=== PATIENT | male | born 1940 | race Caucasian/White ===

== ENCOUNTER → 2019-03-14 | Day surgery (SDC) | payer MEDICARE ==
[2019-03-12 14:20] LABS: BASOPHILS # (AUTO) 0.1 (0.0-0.1); EOSINOPHILS # (AUTO) 0.4 (0.0-0.4); EOSINOPHILS % 5.8 % (0.0-6.0); HEMATOCRIT 39.7 % (38.2-49.6); HEMOGLOBIN 13.6 g/dL (14.0-18.0); LYMPHOCYTES # (AUTO) 3.4 (1.0-3.2); LYMPHOCYTES % 44.4 % (18.0-39.1); MEAN CORPUSCULAR HEMOGLOBIN 33.8 pg (28-32); MEAN CORPUSCULAR HGB CONC 34.3 g/dL (31-35); MEAN CORPUSCULAR VOLUME 98.8 fL (81-99); MONOCYTES # (AUTO) 0.7 (0.2-0.8); MONOCYTES % 8.9 % (4.4-11.3); NEUTROPHILS % 39.1 % (38.7-80.0); PLATELET COUNT 189 x10e3/uL (140-360); RED BLOOD COUNT 4.02 x10e6/uL (4.3-5.7); RED CELL DISTRIBUTION WIDTH 13.4 % (11.7-14.4)
--- NOTE | 2019-03-12 14:50 | Diagnostic Imaging Report ---
EXAM: CHEST 2 VIEWS DATE: 03/12/2019 1:57 PM INDICATION: Right carpal tunnel/hand pain, preoperative evaluation COMPARISON: None FINDINGS: The trachea is midline. The lungs are symmetrically expanded without evidence for focal consolidation, pneumothorax, or significant pleural effusion. The cardiomediastinal silhouette is within normal limits. Atherosclerotic calcifications are noted within the thoracic aorta. No acute osseous abnormalities identified. IMPRESSION: No acute cardiopulmonary process identified. Signed by: Dr. Julian Xie MD on 03/12/2019 2:47 PM
[2019-03-12 14:56] LABS: INR 0.98; PROTHROMBIN TIME 13.5 seconds (11.9-14.5)
[2019-03-12 14:57] LABS: PARTIAL THROMBOPLASTIN TIME 31.4 seconds (23.8-35.5)
[~2019-03-14] MED LIST: ASPIRIN81 MG; BUPIVACAINE HCL 0.5% INJ 30 ML VIAL INJ ONE; CARVEDILOL12.5 MG PO; CEFAZOLIN SOD 1 GM/NS 50ML 100 ML IV ONE; CENTRUM SILVER1 EAC3; CINNAMON500 MG; DEXAMETHASONE SOD PHOS INJ 4 MG/ML VIAL ONE; FOLIC ACID1 MG PO; GLUCOSAMINE1000 MG; KETOROLAC TROMETHAMINE 30 MG/ML VIAL ONE; LISINOPRIL10 MG PO; LOVASTATIN20 MG; MILK THISTLE175 M2; NABUMETONE500 MG; OMEPRAZOLE40 MG; ONDANSETRON HCL INJ 2MG/ML 2ML 2 MG/ML VIAL ONE; PROPOFOL IV EMULSION 10 MG/ML 20 ML VIAL ONE; REVATIO20 MG PO; ROPINIROLE HCL1 MG PO; SAW PALMETTO450 MG; SEVOFLURANE INHAL SOLN 250 ML PEN BTL ONE; VITAMIN B COMP1 EACH; VITAMIN C1000 M2; iron PO
--- OUTSIDE RECORDS SUMMARY | 2019-03-14 09:22 | XMS REPORT ---
Author Author [facility] Address Unknown Phone Unavailable Care Team Providers Care Mold Presser Name Role Phone GAYLA PARKS Unavailable Unavailable Problems This patient has no known problems. Allergies, Adverse Reactions, Alerts This patient has no known allergies or adverse reactions. Medications This patient has no known medications. Results Test Description Test Time Test Comments Text Results Atomic Results Result Comments CHEST 2 VIEWS 2019-03-12 14:46:00 [place] [id number] Patient Name: LIMA HERNANDEZ JR MR #: [id number] : 1940 Age/Sex: 78/M Req #: [id number] [facility] Hospital Physician: Ordered by: GAYLA PARKS MD Report #: [id number] Location: OR Room/Bed: Procedure: [id number] DX/CHEST 2 VIEWS Exam Date: 03/12/19 Exam Time: 1407 REPORT STATUS: Signed EXAM: CHEST 2 VIEWS DATE: 03/12/2019 1:57 PM INDICATION: Right carpal tunnel/hand pain, preoperative evaluation COMPARISON: None FINDINGS: The trachea is midline. The lungs are symmetrically expanded without evidence for focal consolidation, pneumothorax, or significant pleural effusion. The cardiomediastinal silhouette is within normal limits. Atherosclerotic calcifications are noted within the thoracic aorta. No acute osseous abnormalities identified. IMPRESSION: No acute cardiopulmonary process identified. Signed by: Dr. Julian Sandoval MD on 03/12/2019 2:47 PM Dictated By: JULIAN SANDOVAL MD [id number] Transcribed By: NEGRITA on 03/12/19 1448 COPY TO: GAYLA PARKS MD
--- OUTSIDE RECORDS SUMMARY | 2019-03-14 09:22 | XMS REPORT | Summary of Care ---
Author Author [facility] Address [address] [place] [address] Phone Unavailable Care Team Providers Care Olive Picker Name Role Phone OBDULIO DOUGHERTY N.P. Unavailable Unavailable SHAR BUSBY [place], RISSA BELTRAN Unavailable Unavailable RISSA MYLES M.D. Unavailable JACI GALE [place], OUMOU Unavailable Unavailable Jeff BUSBY, Sundeep Unavailable Unavailable Berenice BUSBY, Charlotte Unavailable Unavailable Unavailable Unavailable Functional Status Name Dates Details Functional status health issues are not documented Status: Name Dates Details Cognitive status health issues are not documented Status: Problems Name Dates Details Edema (782.3, R60.9) Status: Active Advance directive discussed with patient (V65.49, Z71.89) Status: Active Trigger finger, acquired (727.03, M65.30) Status: Active Special screening, prostate cancer (V76.44, Z12.5) Status: Active Acute URI (465.9, J06.9) Status: Active Encounter for mini-mental status examination Status: Active Chest pain (786.50, R07.9) Status: Active 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, 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: Active Need for influenza vaccination (V04.81, Z23) Status: Active Peripheral neuropathy, 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, G60.9) Status: Active Right maxillary sinusitis (473.0, J32.0) Status: Active Nasal septal deviation (470, J34.2) Status: Active Mixed hyperlipidemia (272.2, E78.2) Status: Active Abnormal liver enzymes (790.5, R74.8) Status: Active Alcoholic fatty liver (571.0, K70.0) Status: Active Anemia, unspecified type (285.9, D64.9) Status: Active 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, K22.70) Status: Active Claudication (443.9, I73.9) Status: Active Colon cancer screening (V76.51, Z12.11) Status: Active Essential (primary) hypertension (401.9, I10) Status: Active GERD without esophagitis (530.81, K21.9) Status: Active Hernia, inguinal (550.90, K40.90) Status: Active Mild aortic regurgitation (424.1, I35.1) Status: Active Restless legs syndrome (333.94, G25.81) Status: Active Constipation, unspecified constipation type (564.00, K59.00) Status: Active Flu vaccine need (V04.81, Z23) Status: Active Chronic maxillary sinusitis (473.0, J32.0) Status: Active Laceration of skin (879.8) Status: Active Medications Name Dates Details Lovastatin 20 MG Oral Tablet TAKE ONE TABLET BY MOUTH IN THE EVENING BEFORE DINNER Quantity: 90 DOUGHERTY N.P., OBDULIO * Start : 16-Apr-2013 Active Omeprazole 20 MG Oral Capsule Delayed Release TAKE ONE CAPSULE BY MOUTH ONCE DAILY * Quantity: 90 Refills: 1 DOUGHERTY N.P., OBDULIO * Start : 21-Feb-2017 Active Aspirin 81 MG TABS TAKE 1 TABLET DAILY. * Refills: 0 Active Glucosamine CAPS 2000MG DAILY * Refills: 0 Active Vitamin C CAPS * Refills: 0 Active Vitamin D 2000 UNIT Oral Tablet ONCE DAILY * Refills: 0 Active Lisinopril 40 MG Oral Tablet TAKE ONE TABLET BY MOUTH ONCE DAILY DIRECTED * Quantity: 90 Refills: 1 DOUGHERTY N.P., OBDULIO * Start : 13-May-2013 Active Milk Thistle 500 MG Oral Capsule TAKE DIRECTED. * Quantity: 30 Refills: 0 DOUGHERTY N.P., OBDULIO * Start : 27-May-2013 Active Centrum Silver TABS TAKE 1 TABLET DAILY. * Refills: 0 Active Vitamin B Complex-C Oral Capsule 1 pill twice daily * Refills: 0 DOUGHERTY N.P., OBDULIO * Start : 19-May-2014 Active Saw Crowell CAPS TAKE 2 CAPSULE DAILY * Refills: 0 Active Carvedilol 25 MG Oral Tablet TAKE 1 TABLET TWICE DAILY WITH MEALS. * Quantity: 180 Refills: 1 DOUGHERTY N.P., OBDULIO * Start : 23-Dec-2016 Active ROPINIRole HCl - 3 MG Oral Tablet TAKE 1 TABLET DAILY. * Quantity: 90 Refills: 1 DOUGHERTY N.P., OBDULIO * Start : 03-May-2017 Active MiraLax Oral Powder MIX 1 CAPFUL (17GM) IN 8 OUNCES OF WATER, JUICE, OR TEA AND DRINK DAILY. 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, K22.70) Status: Resolved History of Cellulitis and abscess of finger (681.00, L03.019) Status: Resolved History of Coronary Artery Disease (V12.59) Status: Resolved History of Diverticula of intestine (562.10, K57.30) Status: Resolved History of Ear pain, bilateral (388.70, H92.03) Status: Resolved History of edema (V13.89, Z87.898) Status: Resolved History of Encounter for mini-mental status examination Status: Resolved History of essential hypertension (V12.59, Z86.79) Status: Resolved History of ETD (eustachian tube dysfunction) (381.81, H69.80) Status: Resolved History of Fatty liver (571.8, K76.0) Status: Resolved History of fever (V13.89, Z87.898) Status: Resolved History of Flu vaccine need (V04.81, Z23) Status: Resolved History of hyperlipidemia (V12.29, Z86.39) Status: Resolved History of Impaired fasting glucose (790.21, R73.01) Status: Resolved History of Impaired fasting glucose (790.21, R73.01) Status: Resolved History of influenza (V12.09, Z87.09) Status: Resolved History of influenza (V12.09, Z87.09) Status: Resolved History of Kidney insufficiency (593.9, N28.9) Status: Resolved History of Left knee pain (719.46, M25.562) Status: Resolved History of Malaise (780.79, R53.81) Status: Resolved History of Melena (578.1, K92.1) Status: Resolved History of Need for hepatitis C screening test (V73.89, Z11.59) Status: Resolved History of Neuralgia (729.2, M79.2) Status: Resolved History of Neuralgia (729.2, M79.2) Status: Resolved History of Nonspecific findings on examination of urine (791.9, R82.90) Status: Resolved History of Pain, joint, hand, right (719.44, M25.541) Status: Resolved History of Peripheral neuropathy, 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, G60.9) Status: Resolved History of pneumococcal vaccination (V49.89, Z92.29) Status: Resolved History of renal insufficiency syndrome (V13.09, Z87.448) Status: Resolved History of shortness of breath (V13.89, Z87.898) Status: Resolved History of Trauma of ear canal, initial encounter (959.09, S09.91XA) Status: Resolved History of Trigger middle finger of left hand (727.03, M65.332) Status: Resolved History of Wrist joint effusion, right (719.03, M25.431) Status: Resolved History of Wrist pain, right (719.43, M25.531) Status: Resolved Procedures Procedure Dates Details Procedures not documented Immunization Name Dates Details Fluzone INJ Lot #: [id number] on: 19-May-2014 Fluzone High-Dose 0.5 ML Intramuscular Suspension Prefilled Syringe on: 02-Apr-2015 Prevnar 13 Intramuscular Suspension Lot #: [id number] on: 10-Nov-2015 Influenza Lot #: [id number] on: 03-Jun-2016 Fluzone High-Dose 0.5 ML Intramuscular Suspension Prefilled Syringe Lot #: [id number] on: 17-Apr-2017 Pneumovax 23 25 MCG/0.5ML Injection Injectable Lot #: [id number] on: 17-Apr-2017 Influenza Comments: Approx 10May2013 Family History Name Dates Details Family history of Coronary Artery Disease (V17.49) Comments: Family History Status: Active Family history of Hypertension (V17.49) Comments: Family History Status: Active Family history of Diabetes Mellitus (V18.0) Comments: Family History Status: Active Name Dates Details Family history of Diabetes Mellitus (V18.0) Status: Active Social History Name Dates Details - Status: Name Dates Details Never smoker Vital Signs Date Test Result Details 17-Oct-20178:20 BP Systolic 127 mm[Hg] Status: Comments: Location: LUE; Position: Sitting BP Diastolic 73 mm[Hg] Status: Comments: Location: LUE; Position: Sitting Height 70 in Status: Weight 213 lb Status: Body Mass Index Calculated 30.56 kg/m2 Status: Body Surface Area Calculated 2.14 m2 Status: Temperature 98.3 f Status: Comments: Method: Temporal Heart Rate 80 /min Status: Respiration Rate 16 /min Status: Results Date Description Value Details Results not documented Plan of Care Name Dates Details Planned Observations Planned Goals not documented Planned Encounters Appointment; SUNDEEP LOTT M.D. On: 07-Nov-2017 9:00 Appointment; VERENICE ECHO On: 02-Jan-2018 9:00 Appointment; CHARLOTTE NUGENT M.D. On: 02-Jan-2018 10:00 Instructions Name Dates Details Instructions not documented Encounters Appointment; OUMOU BEATTY P.A. Encounter Diagnosis: Problem not documented On: 10-Nov-2015 13:30 Appointment; OUMOU BEATTY P.A. Encounter Diagnosis: Problem not documented On: 13-Nov-2015 13:00 Appointment; RISSA MYLES M.D. Encounter Diagnosis: Problem not documented On: 03-Jun-2016 10:30 Appointment; OBDULIO DOUGHERTY NP Encounter Diagnosis: Problem not documented On: 08-Jun-2016 8:30 Appointment; OUMOU BEATTY P.A. Encounter Diagnosis: Problem not documented On: 10-Aug-2016 10:45 Appointment; RISSA MYLES M.D. Encounter Diagnosis: Problem not documented On: 05-Sep-2016 8:30 Appointment; OUMOU BEATTY P.A. Encounter Diagnosis: Problem not documented On: 21-Nov-2016 12:30 Appointment; CHARLOTTE NUGENT M.D. Encounter Diagnosis: Problem not documented On: 23-Dec-2016 13:40 Appointment; VERENICE ECHO Encounter Diagnosis: Problem not documented On: 23-Dec-2016 14:00 Appointment; RHIANNON-MS, ECHO Encounter Diagnosis: Problem not documented On: 06-Jan-2017 10:00 Appointment; CHARLOTTE NUGENT M.D. Encounter Diagnosis: Problem not documented On: 06-Jan-2017 11:40 Appointment; SUNDEEP LOTT M.D. Encounter Diagnosis: Problem not documented On: 16-Feb-2017 10:45 Appointment; OUMOU BEATTY P.A. Encounter Diagnosis: Problem not documented On: 22-Feb-2017 9:30 Appointment; SUNDEEP LOTT M.D. Encounter Diagnosis: Problem not documented On: 23-Mar-2017 9:00 Appointment; RISSA MYLES M.D. Encounter Diagnosis: Problem not documented On: 17-Apr-2017 15:00 Appointment; SUNDEEP LOTT M.D. Encounter Diagnosis: Problem not documented On: 27-Apr-2017 9:30 Appointment; SUNDEEP LOTT M.D. Encounter Diagnosis: Problem not documented On: 25-May-2017 9:15 Appointment; SUNDEEP LOTT M.D. Encounter Diagnosis: Problem not documented On: 06-Jun-2017 10:45 Appointment; IBETH CALDERA Encounter Diagnosis: Problem not documented On: 20-Jun-2017 8:00 Appointment; CHARLOTTE NUGENT M.D. Encounter Diagnosis: Problem not documented On: 27-Jun-2017 11:40 Appointment; SUNDEEP LOTT M.D. Encounter Diagnosis: Problem not documented On: 29-Jun-2017 9:30 Appointment; OBDULIO DOUGHERTY NP Encounter Diagnosis: Problem not documented On: 13-Jul-2017 7:30 Appointment; SUNDEEP LOTT M.D. Encounter Diagnosis: Problem not documented On: 20-Jul-2017 9:00 Appointment; SUNDEEP LOTT M.D. Encounter Diagnosis: Problem not documented On: 29-Aug-2017 10:00 Appointment; SUNDEEP LOTT M.D. Encounter Diagnosis: Problem not documented On: 05-Sep-2017 10:00 Appointment; SUNDEEP LOTT M.D. Encounter Diagnosis: Problem not documented On: 10-Oct-2017 10:30 Appointment; LASHAE DELGADO D.O. Encounter Diagnosis: Problem not documented On: 17-Oct-2017 8:45 Appointment; SUNDEEP LOTT M.D. Encounter Diagnosis: Problem not documented On: 17-Oct-2017 10:30
[2019-03-14 11:35] VITALS: BP 118/69
--- NOTE | 2019-03-14 12:05 | Operative Report ---
DATE OF PROCEDURE: 03/14/2019 SURGEON: Mickey Ayoub MD PREOPERATIVE DIAGNOSIS: Right carpal tunnel syndrome. POSTOPERATIVE DIAGNOSIS: Right carpal tunnel syndrome. PROCEDURE: Right carpal tunnel release. ANESTHESIA: General. INDICATIONS: The patient is a 78-year-old man, who presents with severe right carpal tunnel syndrome. He was taken to the operating room for carpal tunnel release. PROCEDURE IN DETAIL: After induction of anesthesia, the patient was placed on the operating table in supine position. The right arm was then abducted over a hand table. The right hand, wrist, and forearm were prepped and draped circumferentially in sterile fashion. A small midline incision was created over the median palmar crease of the hand just distal to the distal flexor crease of the wrist. The subcutaneous fat was divided. The transverse carpal ligament was identified and incised with a #15 C blade until the underlying median nerve came into view. As the bakery assistant retracted the skin edges, the transverse carpal ligament was divided proximally and distally until the full length of the carpal tunnel had been exposed and the median nerve was released within the carpal tunnel. The point of maximal compression of the nerve appeared to be about 2 cm distal to the distal flexor crease of the wrist, where the ligament was at its thickest. More distally, the recurrent motor branch of the nerve was preserved within this fat pad. The wound was irrigated with bacitracin solution. Hemostasis was secured. The retractor was removed. The subcutaneous layer was closed with 3-0 Vicryl suture. The skin was closed with 3-0 nylon suture in a horizontal mattress fashion. The skin was infiltrated with lidocaine. The tourniquet was deflated. The dressing was applied. The hand was wrapped. The patient was awakened, extubated, and taken to postanesthesia care unit in stable condition. No intraoperative complications were encountered. Estimated blood loss was minimal. Mickey Ayoub MD PP/MODL /[id number]
== END | disposition home or self-care (01) ==
LOC: OR 09:19
PROVIDERS: ATTEND Neurological Surgery
DX: G56.01 Carpal tunnel syndrome, right upper limb (principal); Z01.810 Encounter for preprocedural cardiovascular examination; Z01.812 Encounter for preprocedural laboratory examination; Z01.811 Encounter for preprocedural respiratory examination; I10 Essential (primary) hypertension
CPT/HCPCS: 36415; 64721; 71046; 85025; 85610; 85730; 93005; J0690; J1100; J1885; J2405; J2704